=== PATIENT | female | born 1955 | race Caucasian/White ===

== ENCOUNTER 2023-04-02 19:12 | Emergency (ER) | payer MEDICARE, OTHER, SELFPAY ==
--- NOTE | ~2023-04-02 | XR_ITS ---
EXAM: XR tibia fibula RT 2V DATE: 04/02/2023 19:37 HISTORY: rt low leg pain s/p falling thru hole . COMPARISON: None available. FINDINGS: Decreased mineralization. No fracture or dislocation. No lytic or blastic lesion. Joint sp aces are maintained. No erosion or periosteal change. Soft tissues within normal limits. IMPRESSION: No acute osseous finding in the tibia or fibula. If symptoms refer to the knee or ankle j oints, recommend dedicated radiographs of those joints. Reviewed, dictated and finalized at location K. IMPRESSION: No acute osseous finding in the tibia or fibula. If symptoms refer to the knee or ankle joints, recommend dedicated radiographs of those joints.
[2023-04-02 19:26] VITALS: BP 146/75; PULSE 65; RESP 16; TEMP 36; O2SAT 99
--- NOTE | 2023-04-02 19:30 | ED.LOWEXIN ---
HPI - Extremity Injury (Lower) General Chief Complaint: Extremity Injury, Lower Stated Complaint: Right Leg Pain Source: patient Mode of arrival: ambulatory Limitations: no limitations History of Present Illness HPI Narrative: 68-year-old female presenting for complaint of right leg pain and abrasions after injury today. She states she fell through a hole in concrete, scraping the leg on the concrete. Denies hitting her head or LOC. Cleaned the sites with hydrogen peroxide after the injury. Denies decreased range of motion to the knee or ankle, denies bruising or swelling, or deformity. Denies numbness, tingling, or weakness of the right lower extremity. Denies any other location of pain. Related Data Allergies Allergy/AdvReac Type Severity Reaction Status Date / Time iohexol Allergy Intermediate Hives Verified 04/02/23 19:28 [From contrast - CT, X-RAY] Review of Systems Review of Systems: CONSTITUTIONAL: Denies body aches, fever, chills EYES: Denies visual changes ENT: Denies rhinorrhea, congestion CARDIOVASCULAR: Denies chest pain, palpitations, or edema. RESPIRATORY: Denies cough or dyspnea. GASTROINTESTINAL: Denies abdominal pain, nausea, vomiting, or diarrhea. SKIN: Denies rash, itching, reports wound right leg MUSCULOSKELETAL: Reports right lower extremity pain denies back pain, or myalgia. NEUROLOGIC: Denies headache, numbness, tingling, or weakness. PSYCH: Denies depression or anxiety. All systems reviewed & are unremarkable except as noted in HPI and below PMFSH Comments At time of signature, I have reviewed and agree with nursing past medical, surgical, social and family history unless otherwise noted. Please see nursing chart for further information. There is no relevant family history pertinent to the presenting complaint Exam Narrative: GENERAL: Well-appearing, well-nourished, and in no acute distress. HEAD: Normocephalic, atraumatic. EYES: conjunctivae clear CHEST: Speaks in full sentences. No respiratory distress. HEART: Regular rate and rhythm. Normal and equal peripheral pulses. EXTREMITIES: Right lower leg with several linear abrasions to lateral and medial calf measuring [id number] laterally, [id number] medially; bruising noted. No active bleeding. Abrasion to medial malleolus. No deformity to ankle or knee. RLE has normal strength and sensation, normal range of motion to ankle and knee, No point tenderness or swelling. Alignment normal, pulse palpable and equal bilaterally, skin warm, dry, pink. Capillary refill less than 3 seconds. Ambulates with limp. SKIN: Warm, dry, no rash. NEURO: Alert and oriented x3. PSYCH: Normal mood and affect Course Course Emergency Course: Patient is aware of diagnosis, understands and agrees to treatment plan. Anticipatory guidance given. Patient agrees to follow-up as directed and is aware of reasons to seek care at the emergency department. Portions of this record may have been created with voice recognition software Level of Care: Express Care Visit Vital Signs Vital signs: Vital Signs Temperature 96.8 F L 04/02/23 19:26 Pulse Rate 65 04/02/23 19:26 Respiratory Rate 16 04/02/23 19:26 Blood Pressure 146/75 H 04/02/23 19:26 Pulse Oximetry 99 04/02/23 19:26 Oxygen Delivery Room Air 04/02/23 19:26 Temperature 96.8 F L 04/02/23 19:26 Pulse Rate 65 04/02/23 19:26 Respiratory Rate 16 04/02/23 19:26 Blood Pressure 146/75 H 04/02/23 19:26 Pulse Oximetry 99 04/02/23 19:26 Oxygen Delivery Room Air 04/02/23 19:26 Reviewed MDM - Extremity Injury (Lower) MDM Narrative Medical decision making narrative: Results of x-ray reviewed with patient. Discussed physical exam findings. Right leg wound cleansed with wound spray, applied nonadhesive and gauze per RN. Advised supportive measures and signs/symptoms to go to the ER. Pt is appropriate for outpt treatment and f/u. Differential Diagnosis Differential diagnosi
== END 2023-04-02 20:05 | disposition home or self-care (01) ==
PROVIDERS: Emergency Provider Nurse Practitioner Family
DX: S80.811A Abrasion, right lower leg, initial encounter (principal); W17.2XXA Fall into hole, initial encounter; Z85.41 Personal history of malignant neoplasm of cervix uteri; Z92.3 Personal history of irradiation
CPT/HCPCS: 73590; 99203; G0463

== ENCOUNTER 2023-04-27 09:34 | Emergency (ER) | payer MEDICARE, OTHER, SELFPAY ==
[2023-04-27 10:01] VITALS: BP 140/69; PULSE 61; RESP 14; TEMP 36.8; O2SAT 100
--- NOTE | 2023-04-27 10:47 | ED.SKABFB ---
HPI - Skin/Abscess/Foreign Bdy General Chief complaint: Skin/Abscess/Foreign Body Stated complaint: Insect Bite Time Seen by Provider: 04/27/23 10:47 Source: patient, RN notes reviewed and old records reviewed Mode of arrival: ambulatory Limitations: no limitations History of Present Illness HPI narrative: 68 year old female presents to Express Care with complaints noticing a tick bite to her right upper clavicle area last night and pulled the tick off. Patient has some redness around bite site but, no pustular formation or any fluctuance of tissue, Patient denies any fevers chills or sweats, denies any muscle aches. Patient seen the 02 of April for wounds she received to her right lower leg after stepping into a man hole cover, wounds healed but patient concerned for mild raised tissue area of right proximal outer leg wonders if small hematoma. Patient has no fluctuance of tissue area of right proximal outer right lower leg, warmth or redness or any pain to area. MD complaint: other (tick bite) Onset (ago): day(s) (pulled tick off last night) Severity: mild Treatments prior to arrival: OTC topical medication and other (removed tick) Related Data Allergies Allergy/AdvReac Type Severity Reaction Status Date / Time iohexol Allergy Intermediate Hives Verified 04/27/23 10:27 [From contrast - CT, X-RAY] cephalexin Allergy Other Verified 04/27/23 10:38 Sulfa (Sulfonamide Allergy Other Verified 04/27/23 10:38 Antibiotics) Review of Systems Review of Systems: CONSTITUTIONAL: Denies fever, chills, or sweats. CARDIOVASCULAR: Denies chest pain, palpitations, or edema. RESPIRATORY: Denies cough or dyspnea. GASTROINTESTINAL: Denies abdominal pain, nausea, vomiting SKIN: Reports small red area to right upper shoulder clavicle area where she removed tick last night. Denies purulent drainage, vesicles, or pain beyond proportion, voices also some concern for small raised tissue area to proximal right lower leg where she had wound from stepping through man hole cover 04/02/23 MUSCULOSKELETAL: Denies myalgia. NEUROLOGIC: Denies headache, numbness All systems reviewed & are unremarkable except as noted in HPI and below PMFSH Past Medical History Medical History (Updated 04/29/23 @ 08:21 by Mary Zuleta NP) Cervical cancer with radiation treatment Small bowel obstruction Surgical History Surgical History (Updated 04/29/23 @ 08:09 by Mary Zuleta NP) H/O: hysterectomy History of cholecystectomy History of colon resection sigmoid Hx of appendectomy Social History Social History (Updated 04/29/23 @ 08:06 by Mary Zuleta NP) Smoking status: Never smoker Alcohol intake: current Alcohol use details: rare Substance use: never Living arrangements: with family Gender identity (if verbalized by the patient): Female Comments At time of signature, agree with nursing past medical, surgical, social and family history. There is no relevant family history pertinent to the presenting complaint Exam Narrative: GENERAL: Well-appearing, well-nourished, and in no acute distress. HEAD: Normocephalic, atraumatic. EYES: PERRLA and EOMI. ENT: Nares clear, no rhinorrhea or epistaxis. Mucous membranes moist. NECK: Supple.no lymphadenopathy CHEST: Clear to auscultation. No respiratory distress.SAO2 100% on room air HEART: Regular rate and rhythm. No murmur heard. Normal peripheral pulses. ABDOMEN: Soft, nontender, nondistended, normal active bowel sounds. EXTREMITIES: Normal range of motion. No edema. SKIN: Warm, dry. 0.25 cm lesion to right upper shoulder clavicle area where patient removed tick, no acute warmth or redness or any drainage no bulls eye lesion formation, small raised area to healed right lateral leg where patient had wounds she sustained on 04/02/2023 when she stepped in man hole cover. no warmth, redness or any fluctuance of tissue noted NEURO: No focal deficits. Alert and oriented x3. Cour
== END 2023-04-27 11:11 | disposition home or self-care (01) ==
PROVIDERS: Emergency Provider Registered Nurse
DX: S40.261A Insect bite (nonvenomous) of right shoulder, initial encounter (principal); W57.XXXA Bitten or stung by nonvenomous insect and other nonvenomous arthropods, initial encounter; S80.11XD Contusion of right lower leg, subsequent encounter; W17.2XXD Fall into hole, subsequent encounter; Z85.41 Personal history of malignant neoplasm of cervix uteri; Z92.3 Personal history of irradiation
CPT/HCPCS: 99213; G0463

== ENCOUNTER 2024-06-24 09:41 | Emergency (ER) | payer MEDICARE, OTHER, SELFPAY ==
--- NOTE | ~2024-06-24 | XR_ITS ---
XR hand RT min 3V Ordering provider: Edwina Ta APRN History: . pain and swelling distal fingers 2/3/4 . Comparison: None. FINDINGS: BONES: No acute fracture or dislocation. JOINT SPACES: Normal. SOFT TISSUES: Normal. IMPRESSION: No acute osseous abnormality right hand. Reviewed, dictated and finalized at location A.
[2024-06-24 09:52] VITALS: BP 142/80; PULSE 59; RESP 19; TEMP 36.9; O2SAT 100
--- NOTE | 2024-06-24 10:02 | ED.UPPEXIN ---
HPI - Extremity Injury (Upper) General Chief Complaint: Extremity Injury, Upper Stated Complaint: Right Hand Fingers Pain Time Seen by Provider: 06/24/24 10:02 Source: patient, RN notes reviewed and old records reviewed Mode of arrival: ambulatory Limitations: no limitations History of Present Illness HPI narrative: 69-year-old female presents to the [facility] with right hand/finger pain Patient states that she caught it in a garage door. Has a small cut to the palmar aspect DIP less than 0.5 cm. Bleeding is controlled. Tenderness to the distal 2nd 3rd and 4th finger. Does have good range of motion. Capillary refill is under 2 seconds Onset (ago): hour(s) Treatments prior to arrival: cold therapy Related Data Home Medications Medication Instructions Recorded Confirmed No Home Medications 06/24/24 06/24/24 Allergies Allergy/AdvReac Type Severity Reaction Status Date / Time iohexol Allergy Intermediate Hives Verified 06/24/24 09:55 [From contrast - CT, X-RAY] cephalexin Allergy Other Verified 06/24/24 09:55 Sulfa (Sulfonamide Allergy Other Verified 06/24/24 09:55 Antibiotics) Review of Systems Review of Systems: All systems reviewed & are unremarkable except as noted in HPI and below Constitutional: Constitutional: Reports no additional constitutional complaints ENT: Reports system reviewed and no additional complaints, except as documented Cardiovascular: Cardiovascular: Reports no additional cardiovascular complaints, Denies chest pain and Denies dyspnea Respiratory: Respiratory: Reports no additional respiratory complaints, Denies chest congestion, Denies cough and Denies dyspnea Gastrointestinal: Gastrointestinal: Reports no additional gastrointestinal complaints, Denies abdominal pain, Denies nausea and Denies vomiting Musculoskeletal: Musculoskeletal: Reports as per HPI Integumentary/Breasts: Skin/Breast: Reports system reviewed and no additional complaints, except as docu PMFSH Past Medical History Medical History Cervical cancer with radiation treatment Small bowel obstruction Surgical History Surgical History H/O: hysterectomy History of cholecystectomy History of colon resection sigmoid Hx of appendectomy Social History Social History Smoking status: Never smoker Alcohol intake: current Alcohol use details: rare Substance use: never Living arrangements: with family Gender identity (if verbalized by the patient): Female Comments At the time of my signature, I reviewed and agree with the nursing past medical, surgical, social, and family history. There is no relevant family history pertinent to the patient complaint. Exam Const: General: cooperative, healthy appearing, comfortable, no acute distress, well developed, alert and well nourished Nutritional Appearance: well nourished Orientation/consciousness: patient oriented x3 Limitations: no limitations HENMT: Head: normal to inspection Ears: hearing grossly normal bilaterally and external ears normal Face/Nose/Sinus: Normal external nose present, normal facial exam and face symmetric Face and sinus: normal facial exam and face symmetric Eyes: General: appearance normal, both eyes and all related structures Alignment and Position: alignment normal Periorbital: periorbital findings normal Neck: Neck: normal visual inspection, full ROM, no lymphadenopathy and no meningeal signs Chest: Chest palpation & inspection: normal inspection of the chest Resp: Effort & Inspection: normal respiratory effort and able to speak in complete sentences Cardio: Rate: regular rate Skin: General skin exam: normal color and no rashes or lesions noted Lesions: no lesions Rashes: no rashes Neuro: General: patient oriented x3, gait normal, tone normal, moves all extremities and no meningeal signs Cognition (Neuro): normal cognition Speech: normal speech Gait exam (Neuro): Normal gait present Extrem: General: normal to inspection, full ROM, capillary refill normal and normal gait Right upper extremity: Extremity exam: right hand normal capillary refill, vascular exam radial pulse present and normal capillary refill, abrasion (Palmar aspect 3rd finger at the DIP joint) and other (Tenderness to distal fingers 2,3,4) Psych: Appearance: grossly normal and well kempt Mental Status: mental status grossly normal Speech and movement: Normal speech and movement present and Clear speech present Affect: normal affect Attitude: cooperative Course Course Level of Care: Express Care Visit Vital Signs Vital signs: Vital Signs Temperature 98.4 F 06/24/24 09:52 Pulse Rate 59 L 06/24/24 09:52 Respiratory Rate 19 06/24/24 09:52 Blood Pressure 142/80 H 06/24/24 09:52 Pulse Oximetry 100 06/24/24 09:52 Oxygen Delivery Room Air 06/24/24 09:52 Temperature 98.4 F 06/24/24 09:52 Pulse Rate 59 L 06/24/24 09:52 Respiratory Rate 19 06/24/24 09:52 Blood Pressure 142/80 H 06/24/24 09:52 Pulse Oximetry 100 06/24/24 09:52 Oxygen Delivery Room Air 06/24/24 09:52 Reviewed MDM - Extremity Injury (Upper) MDM Narrative Medical decision making narrative: Patient sitting comfortably in exam room. Nontoxic, vitals stable. Patient had cough fingers in a garage door X-rays negative Cut to finger, superficial, bleeding controlled. Updated tetanus Area was cleaned Patient appropriate for outpatient treatment and follow-up Discharge instructions reviewed with patient, as well as provided in writing per nursing staff. The instructions also include specific and strict return/GO TO THE ER as well as f/u information. All questions have been answered, and the patient deny any further questions with discharge and discharge plan. Some parts of this dictation were generated by voice recognition software and may contain typographical and/or grammatical inaccuracies. Differential Diagnosis Differential diagnosis: Likely finger sprain and other (Finger contusion, finger fracture) Imaging Data Radiologist's impression: XR hand RT min 3V Ordering provider: Edwina Ta APRN History: . pain and swelling distal fingers 2//4 . Comparison: None. FINDINGS: BONES: No acute fracture or dislocation. JOINT SPACES: Normal. SOFT TISSUES: Normal. IMPRESSION: No acute osseous abnormality right hand. Critical Care Time Critical Care Time Critical Care Time: No Discharge Plan Discharge Clinical Impression: Cut of skin of middle finger, Vaccine for diphtheria-tetanus Contusion of finger of right hand Qualifiers: Encounter type: initial encounter Finger: unspecified finger Qualified Code(s): S60.00XA - Contusion of unspecified finger without damage to nail, initial encounter Patient Disposition: Home, Self-Care Condition: Stable Instructions: Antibiotic Form, Contusion in Adults (ED) Additional Instructions: Your Xray did not show a fracture. Ice should be applied to help reduce swelling. It can be used for 20 to 30 minutes, every 2-3 hours while awake. Do not apply ice directly to your skin. You can alternate ibuprofen 600mg and Tylenol 650mg every 4 hours as needed for pain Please schedule a follow-up visit with your personal physician for further evaluation and treatment within 2 weeks especially if symptoms persist. For new or worsening symptoms go directly to the emergency room Patient Language: Spanish Prescriptions: No Action No Home Medications Follow-up/Referrals: PHYSICIAN,GLASS ROBOT OPERATOR [Primary Care Provider] - Stand Alone Forms: Work/School Release IP Time of Disposition: 10:37
[2024-06-24] MEDS: TETANUS/DIPHTHERIA TOXOIDS ADSORB 0.5 ML VIAL (*BKC) IM (10:23)
== END 2024-06-24 10:40 | disposition home or self-care (01) ==
PROVIDERS: Emergency Provider Nurse Practitioner
DX: S61.212A Laceration without foreign body of right middle finger without damage to nail, initial encounter (principal); X58.XXXA Exposure to other specified factors, initial encounter; S60.021A Contusion of right index finger without damage to nail, initial encounter; S60.031A Contusion of right middle finger without damage to nail, initial encounter; S60.041A Contusion of right ring finger without damage to nail, initial encounter; Z23 Encounter for immunization; Z85.41 Personal history of malignant neoplasm of cervix uteri
CPT/HCPCS: 73130; 90471; 90714; 99213; G0463